=== PATIENT | female | born 1995 | race Caucasian/White ===

== ENCOUNTER 2024-03-31 08:21 | Inpatient (IN) | payer BC ==
[2024-03-31] MEDS ORDERED: Misoprostol 200 MCG Tab PO PRN (08:24)
[2024-03-31] MEDS ORDERED: Sodium Chloride 0.9% 2.5 ML Syringe FLUSH PRN (08:24)
[2024-03-31] MEDS ORDERED: Terbutaline 1 MG/ML SDV SUBCUT PRN (08:24)
[2024-03-31] MEDS ORDERED: Water For Irrigation,Sterile 1,000 ML Container IRR PRN (08:24)
[2024-03-31] MEDS ORDERED: Methylergonovine 0.2 MG/1 ML Amp IM PRN ×2 (08:24→18:09)
[2024-03-31] MEDS ORDERED: Lidocaine 1% 50 ML MDV INJECT PRN (08:24)
[2024-03-31] MEDS ORDERED: Carboprost Tromethamine 250 MCG/1 mL Vial IM PRN (08:24)
[2024-03-31] MEDS ORDERED: Sodium Chloride 0.9% 10 ML Syringe FLUSH PRN (08:24)
[2024-03-31] MEDS ORDERED: Ondansetron 4 MG/2 ML SDV IVPUSH PRN (08:24)
[2024-03-31] MEDS ORDERED: Butorphanol 2 MG/ML SDV IVPUSH PRN (08:24)
[2024-03-31] MEDS ORDERED: Sodium Chloride 0.9% 20 ML SDV IV PRN (08:24)
[2024-03-31] MEDS ORDERED: Oxytocin/0.9 % Sodium Chloride 30 UNIT/500 ML BAG IV SCH (08:30)
[2024-03-31 09:00] LABS: HEMATOCRIT 34.1 % (37.0-47.0); HEMOGLOBIN 12.2 g/dL (12.0-16.0); MEAN CORPUSCULAR HEMOGLOBIN 32.2 pg (28.0-32.0); MEAN CORPUSCULAR HGB CONC 35.8 g/dL (32.0-36.0); MEAN PLATELET VOLUME 8.7 fL (9.4-12.3); PLATELET COUNT,PLT 293 K/uL (150-400); RED BLOOD CELL COUNT 3.79 M/uL (4.10-5.30); WHITE BLOOD CELL COUNT,WBC 13.81 K/uL (3.9-11.3)
[2024-03-31] MEDS: cefTRIAXone 1 GM in Sodium Chloride 0.9% 50 ML IV ONE (09:01)
[2024-03-31] MEDS: Oxytocin/0.9 % Sodium Chloride 30 UNIT/500 ML BAG IV SCH (09:15)
[2024-03-31] MEDS: Lactated Ringers 1,000 ML IV SCH (09:15)
[2024-03-31] MEDS: Ropivacaine HCl/PF 400 MG in Premix Bag 1 BAG EPIDUR SCH (11:48)
[2024-03-31] MEDS ORDERED: Phenylephrine HCl In 0.9% NaCl 1 MG/10 ML Syringe IVPUSH PRN (11:56)
[2024-03-31] MEDS ORDERED: ePHEDrine 50 MG/ML SDV IVPUSH PRN (11:56)
[2024-03-31] MEDS ORDERED: dexmedeTOMIDine HCl 200 MCG/2 ML SDV EPIDUR SCH (12:00)
[2024-03-31] MEDS: Phenylephrine HCl In 0.9% NaCl 1 MG/10 ML Syringe ONE (12:22)
[2024-03-31] MEDS: Ropivacaine HCl/PF 200 ML ONE (12:22)
[2024-03-31] MEDS: dexmedeTOMIDine HCl 200 MCG/2 ML SDV ONE (12:22)
[2024-03-31] MEDS ORDERED: Hydrocortisone 2.5% Crm 30 GM Tube TOP PRN (18:09)
[2024-03-31] MEDS ORDERED: oxyCODONE 5 MG Tab PO PRN (18:09)
[2024-03-31] MEDS ORDERED: Lanolin 100% Cream 7 GM Tube TOP PRN (18:09)
[2024-03-31 18:15] LABS: PH,UMBILICAL ARTERIAL 7.282 (7.18-7.38); PH,UMBILICAL VENOUS 7.356 (7.25-7.45)
[2024-03-31] MEDS: Benzocaine/Menthol 20%-0.5% Spray 78 GM Cannister TOP PRN (19:47)
[2024-03-31] MEDS: Witch Hazel Medicated Pads 40/Jar TOP PRN (19:48)
[2024-03-31] MEDS: Docusate Sodium 100 MG Cap PO PRN (20:37)
[2024-03-31] MEDS: Ibuprofen 800 MG Tab PO PRN (20:37)
[2024-03-31] MEDS: Acetaminophen 500 MG Tab PO PRN (20:37)
[2024-04-01 06:20] LABS: HEMATOCRIT 29.3 % (37.0-47.0)
== END 2024-04-02 13:15 | disposition home or self-care (01) | DRG 560 ==
LOC: MW.OB 08:21 → OBSVTOIN 14:20 → MW.OB 21:26
PROVIDERS: ADMIT Obstetrics & Gynecology; ATTEND Obstetrics & Gynecology
PROC: 10E0XZZ Delivery of Products of Conception, External Approach (ICD-10-PCS; principal; 2024-03-31)
PROC: 0HQ9XZZ Repair Perineum Skin, External Approach (ICD-10-PCS; 2024-03-31)
DX: O69.81X0 Labor and delivery complicated by cord around neck, without compression, not applicable or unspecified (principal); Z3A.39 39 weeks gestation of pregnancy; Z37.0 Single live birth; O70.1 Second degree perineal laceration during delivery
CPT/HCPCS: 01967; 36415; 51702; 59025; 82803; 85014; 85018; 85027; 86592; 86850; 86900; 86901; A9270-GY; J0696; J2371; J2590; J2795; J3490; J7120

== ENCOUNTER 2025-05-13 10:01 | Emergency (ER) | payer OTHER, BC ==
[2025-05-13] MEDS: Acetaminophen/HYDROcodone 325-5 MG Tab PO ONE (11:51)
== END 2025-05-13 12:04 | disposition home or self-care (01) ==
LOC: MW.ED 10:01
DX: M23.92 Unspecified internal derangement of left knee (principal)
CPT/HCPCS: 73562; 99283; A9270